=== PATIENT | female | born 1990 | race Caucasian/White ===

== ENCOUNTER 2018-10-12 13:22 | Emergency (ER) | payer MEDICAID ==
[~2018-10-12] VITALS: Ht 160 cm; Wt 59.0 kg
[2018-10-12 13:33] VITALS: BP_SYST 123
--- NOTE | 2018-10-12 13:35 | NUR ---
ER at bedside examining patient.
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
--- NOTE | 2018-10-12 14:00 | NUR ---
Patient refused crutches.
--- NOTE | 2018-10-12 14:12 | NUR ---
Patient given written and verbal discharge instructions and verbalizes understanding. ER MD discussed with patient the results and treatment provided. Patient in stable condition. ID arm band removed. Rx of naprosyn given. Patient educated on pain management and to follow up with PMD. Pain Scale 0/10. Opportunity for questions provided and answered. Medication side effect fact sheet provided.
[2018-10-12 14:13] VITALS: BP_SYST 123
== END 2018-10-12 14:13 | disposition home or self-care (01) ==
LOC: SED 13:22
DX: S93.402A Sprain of unspecified ligament of left ankle, initial encounter (principal); S90.32XA Contusion of left foot, initial encounter; Z88.6 Allergy status to analgesic agent; V29.9XXA Motorcycle rider (driver) (passenger) injured in unspecified traffic accident, initial encounter; Y93.89 Activity, other specified; Y92.89 Other specified places as the place of occurrence of the external cause; Y99.8 Other external cause status
CPT/HCPCS: 99283